=== PATIENT | male | born 1985 | race Caucasian/White ===

== ENCOUNTER 2022-09-05 18:30 | Emergency (ER) | payer SELFPAY ==
[~2022-09-05] VITALS: Ht 188 cm; Wt 84.1 kg
[2022-09-05 18:37] VITALS: TEMP 98.3
[2022-09-05] MEDS ORDERED: AMOXICILLIN 8751 TAB PO (19:22)
[2022-09-05 19:59] VITALS: BP 145/79; PULSE 85
== END 2022-09-05 20:00 | disposition home or self-care (01) ==
LOC: COL.ER 18:30
DX: H66.92 Otitis media, unspecified, left ear (principal); F17.210 Nicotine dependence, cigarettes, uncomplicated; Z28.310 Unvaccinated for COVID-19